=== PATIENT | female | born 2000 | race Caucasian/White ===

== ENCOUNTER 2019-01-03 19:30 | Emergency (ER) | payer OTHER ==
--- NOTE | 2019-01-03 20:09 | ER Document Report ---
ED Medical Screen (RME) - General Chief Complaint: OB Problem (<20wks) Stated Complaint: ISSUES Time Seen by Provider: 01/03/19 19:58 Mode of Arrival: Ambulatory Information source: Patient Notes: Patient presents to the emergency department with reports of positive home test. Last period December 04. History of a miscarriage G1, P0. Reports mild abdominal cramps no vaginal bleed some pain with void. I have greeted and performed a rapid initial assessment of this patient. A comprehensive ED assessment and evaluation of the patient, analysis of test results and completion of the medical decision making process will be conducted by additional ED providers. Dictation of this chart was performed using voice recognition software; therefore, there may be some unintended grammatical errors. TRAVEL OUTSIDE OF THE [place] IN LAST 30 DAYS: No - Related Data Allergies/Adverse Reactions: codeine Allergy (Verified 01/03/19 19:40) Physical Exam - Vital signs Vitals: Temp Pulse Resp BP Pulse Ox 98.7 F 84 18 151/94 H 98 01/03/19 19:45 01/03/19 19:45 01/03/19 19:45 01/03/19 19:45 01/03/19 19:45 Course - Vital Signs Vital signs: Temp Pulse Resp BP Pulse Ox 98.7 F 84 18 151/94 H 98 01/03/19 19:45 01/03/19 19:45 01/03/19 19:45 01/03/19 19:45 01/03/19 19:45
[2019-01-03 20:32] LABS: ABSOLUTE EOSINOPHILS # (AUTO) 0.2 10^3/uL (0.0-0.6); ABSOLUTE LYMPHOCYTES (AUTO) 3.8 10^3/uL (0.5-4.7); ABSOLUTE MONOCYTES (AUTO) 0.8 10^3/uL (0.1-1.4); ABSOLUTE NEUT (AUTO) 9.2 10^3/uL (1.7-8.2); BASOPHILS % (AUTO) 0.3 % (0-2); EOSINOPHILS % (AUTO) 1.2 % (0-6); HEMATOCRIT 39.5 % (36.0-47.0); HEMOGLOBIN 13.2 g/dL (12.0-15.5); MEAN CORPUSCULAR HEMOGLOBIN 28.6 pg (27.0-33.4); MEAN CORPUSCULAR HGB CONC 33.3 g/dL (32.0-36.0); MEAN CORPUSCULAR VOLUME 86 fl (80-97); MONOCYTES % (AUTO) 5.9 % (3-13); PLATELET COUNT 402 10^3/uL (150-450); RED BLOOD COUNT 4.61 10^6/uL (3.72-5.28); RED CELL DISTRIBUTION WIDTH 13.8 % (11.5-14.0); SEGMENTED NEUTROPHILS % (AUTO) 65.6 % (42-78); TOTAL CELLS COUNTED % (AUTO) 100 %
--- NOTE | 2019-01-03 20:35 | ER Document Report ---
ED GI/ - General Chief Complaint: OB Problem (<20wks) Stated Complaint: ISSUES Time Seen by Provider: 01/03/19 19:58 Mode of Arrival: Ambulatory Notes: Patient is a 18-year-old female that comes to the emergency department for chief complaint of cramping in her lower abdomen and back. She states she had a positive home test as well. LMP approximately December 03 of this year. She is sexually active with her . She denies fever/chills, nausea/vomiting, vaginal bleeding or discharge, dysuria. She denies injury. She has had one previous with a spontaneous miscarriage. She denies any surgeries, medications, or diagnosed medical problems. TRAVEL OUTSIDE OF THE [place] IN LAST 30 DAYS: No - Related Data Allergies/Adverse Reactions: codeine Allergy (Verified 01/03/19 19:40) Past Medical History - General Information source: Patient - Social History Smoking Status: Never Smoker Chew tobacco use (# tins/day): No Frequency of alcohol use: None Drug Abuse: None Lives with: Family Family History: Reviewed & Not Pertinent Patient has suicidal ideation: No Patient has homicidal ideation: No Renal/ Medical History: Denies: Hx Peritoneal Dialysis Surgical Hx: Negative - Immunizations Immunizations up to date: Yes Hx Diphtheria, Pertussis, Tetanus Vaccination: Yes Review of Systems - Review of Systems Constitutional: No symptoms reported EENT: No symptoms reported Cardiovascular: No symptoms reported Respiratory: No symptoms reported Gastrointestinal: See HPI Genitourinary: See HPI Female Genitourinary: See HPI Musculoskeletal: No symptoms reported Skin: No symptoms reported Hematologic/Lymphatic: No symptoms reported Neurological/Psychological: No symptoms reported Physical Exam - Vital signs Vitals: Temp Pulse Resp BP Pulse Ox 98.7 F 84 18 151/94 H 98 01/03/19 19:45 01/03/19 19:45 01/03/19 19:45 01/03/19 19:45 01/03/19 19:45 - Notes Notes: GENERAL: Alert, interacts well. No acute distress. HEAD: Normocephalic, atraumatic. EYES: Pupils equal, round, and reactive to light. Extraocular movements intact. ENT: Oral mucosa moist, tongue midline. Oropharynx unremarkable. Airway patent. LUNGS: Clear to auscultation bilaterally, no wheezes, rales, or rhonchi. No respiratory distress. HEART: Regular rate and rhythm. No murmur ABDOMEN: Minimal generalized tenderness of the lower abdomen. Remaining abdomen completely unremarkable. No rigidity or guarding. Non-distended. Bowel sounds present in all 4 quadrants. GENITOURINARY: Deferred EXTREMITIES: Moves all 4 extremities spontaneously. No edema, normal radial and dorsalis pedis pulses bilaterally. No cyanosis. BACK: no cervical, thoracic, lumbar midline tenderness. No saddle anesthesia, normal distal neurovascular exam. NEUROLOGICAL: Alert and oriented x3. Normal speech. Cranial nerves II through XII grossly intact. PSYCH: Normal affect, normal mood. SKIN: Warm, dry, normal turgor. No rashes or lesions noted. Course - Re-evaluation Re-evalutation: Patient reporting generalized lower abdominal pain with radiation to the flank. No overt CVA tenderness. She is smiling, talkative, well-appearing. Abdomen has very minimal generalized tenderness without guarding. Denies vaginal bleeding or discharge. She states she thinks she has a urinary tract infection. I did review work-up from triage. CBC shows mild leukocytosis of 14,000 with elevation of neutrophils but no bandemia. Chemistry nonspecific. hCG is mildly elevated in the 700s. This is consistent with patient's reported menstrual cycle within the past month. Urinalysis shows some squamous epithelials but much more evidence of infection. Urine culture placed, treating with Keflex. Ultrasound shows small corpus luteum cyst but no acute findings. No intrauterine is noted but I do not expect this with hCG in the 700s. Patient does not have abdominal tenderness suggesting acute abdomen either. On reevaluation patient remains very well-appearing. Discussed work-up, treatments, provided with copy of her results, discussed return precautions. Patient states satisfaction and agreement. - Vital Signs Vital signs: Temp Pulse Resp BP Pulse Ox 98.1 F 71 17 132/79 H 98 01/03/19 22:53 01/03/19 22:53 01/03/19 22:53 01/03/19 22:53 01/03/19 22:53 - Laboratory Result Diagrams: 01/03/19 20:15 01/03/19 20:15 Laboratory results interpreted by me: 01/03/19 01/03/19 01/03/19 20:15 20:15 20:15 WBC 14.0 H Absolute Neutrophils 9.2 H Beta HCG, Quant 758.11 H Urine Protein >=500 H Urine Blood LARGE H Ur Leukocyte Esterase TRACE H Discharge - Discharge Clinical Impression: Abdominal cramping affecting , Flank pain Condition: Stable Disposition: HOME, SELF-CARE Additional Instructions: Your work-up indicates a urinary tract infection. This is most likely the cause of your symptoms. Take Keflex as prescribed, drink plenty fluids, and rest. Your hormone is indicating early , no is visualized in the uterus but this is expected based on your hormone level. No concerning abnormality's were seen. Follow-up with primary care for additional evaluation and management. Return if you worsen including vomiting, developing or worsening pain, fever/chills, or any other concerning or worsening symptoms. Prescriptions: Cephalexin Monohydrate [Keflex 500 mg Capsule] 500 mg PO BID 7 Days #14 capsule
[2019-01-03 20:39] LABS: APPEARANCE,URINE SLIGHTLY-CLOUDY; COLOR,URINE AMBER
[2019-01-03 20:40] LABS: BILIRUBIN,URINE NEGATIVE (NEGATIVE); GLUCOSE, URINE NEGATIVE (NEGATIVE); KETONES,URINE NEGATIVE (NEGATIVE); LEUKOCYTE ESTERASE,URINE TRACE (NEGATIVE); NITRITE,URINE NEGATIVE (NEGATIVE); PROTEIN,URINE >=500 mg/dL (NEGATIVE); UROBILINOGEN,URINE NEGATIVE mg/dL (<2.0)
[2019-01-03 20:50] LABS: ALANINE AMINOTRANSFERASE 24 U/L (9-52); ALBUMIN 3.6 g/dL (3.5-5.0); ALKALINE PHOSPHATASE 53 U/L (38-126); ANION GAP 8 (5-19); ASPARTATE AMINO TRANSFERASE 22 U/L (14-36); BILIRUBIN,DIRECT 0.2 mg/dL (0.0-0.4); BILIRUBIN,TOTAL 0.3 mg/dL (0.2-1.3); BLOOD UREA NITROGEN 13 mg/dL (7-20); CALCIUM 8.9 mg/dL (8.4-10.2); CARBON DIOXIDE 25 mmol/L (22-30); CHLORIDE 104 mmol/L (98-107); GLUCOSE 88 mg/dL (75-110); POTASSIUM 4.5 mmol/L (3.6-5.0); SODIUM 137.3 mmol/L (137-145); TOTAL PROTEIN 6.7 g/dL (6.3-8.2)
--- NOTE | 2019-01-03 22:33 | RADIOLOGY REPORT (SQ) ---
EXAM DESCRIPTION: [facility]: US TRANSVAGINAL CLINICAL HISTORY: 18 years Female; preg abdominal pain Beta-hCG 758 on 01/03/2019 TECHNIQUE: Endovaginal pelvic ultrasound was performed. COMPARISON: None. FINDINGS: Uterus: 7.7 x 4.5 x 5.6 cm. Endometrial canal is less than 3 mm diameter. No intrauterine gestational sac is identified. There is a trace amount of fluid in the endometrial canal. Right ovary: 3.6 x 2.8 x 2.5 cm. There is a 2.2 x 2 x 2.1 cm cyst with some internal echoes but no septations or nodularity. No significant peripheral hyperemia. Normal ovarian vascular flow on Doppler. Left ovary: 2.9 x 2.2 x 2.8 cm. Normal vascular flow on Doppler. No free fluid. No adnexal masses. Cervix 3 cm long IMPRESSION: 1. No intrauterine gestational sac is identified, likely to early. 2. Cystic structure in the right ovary with some internal echoes may represent the corpus luteum cyst 3. No ovarian torsion or suspicious adnexal masses.
[2019-01-03] MEDS ORDERED: CEPHALEXIN 500 MG CAPSULE PO ONE (22:43)
[2019-01-03 22:55] VITALS: BP 132/79
== END 2019-01-03 22:55 | disposition home or self-care (01) ==
LOC: ER 19:30
DX: O26.91 Pregnancy related conditions, unspecified, first trimester (principal); R10.30 Lower abdominal pain, unspecified; M54.9 Dorsalgia, unspecified; Z3A.01 Less than 8 weeks gestation of pregnancy; Z88.6 Allergy status to analgesic agent
CPT/HCPCS: 36415; 76817; 80053; 81001; 84702; 85025; 87086; 99284

== ENCOUNTER 2019-02-12 16:39 | Emergency (ER) | payer OTHER ==
--- NOTE | 2019-02-12 18:31 | ER Document Report ---
ED Medical Screen (RME) - General Chief Complaint: Vaginal Bleeding Stated Complaint: VAGINAL BLEEDING Time Seen by Provider: 02/12/19 18:23 Primary Care Provider: NICK RICHARDSON [Primary Care Provider] - Follow up as needed Mode of Arrival: Ambulatory Information source: Patient Notes: Patient is an otherwise healthy 18-year-old female presenting with chief complaint of vaginal bleeding in the presence of . Patient reports she is approximately 10 weeks . She is a G2, P0. She reports history of PCOS. She states the bleeding started just prior to arrival. Reports associated low abdominal cramping. Exam: Abdomen soft, nontender with no guarding no rebound. Patient tearful. I have greeted and performed a rapid initial assessment of this patient. A comprehensive ED assessment and evaluation of the patient, analysis of test results and completion of the medical decision making process will be conducted by additional ED providers. I have specifically instructed the patient or family members with the patient to immediately return to any nursing staff should anything change in the patient's condition or with their chief complaint. This medical record was dictated with voice recognizing software. There may be grammatical, syntax errors that are unintended. TRAVEL OUTSIDE OF THE [place] IN LAST 30 DAYS: No - Related Data Allergies/Adverse Reactions: codeine Allergy (Verified 02/12/19 16:45) Past Medical History - Social History Chew tobacco use (# tins/day): No Frequency of alcohol use: None Drug Abuse: None Renal/ Medical History: Reports: Hx Kidney Stones. Denies: Hx Peritoneal Dialysis - Immunizations Immunizations up to date: Yes Hx Diphtheria, Pertussis, Tetanus Vaccination: Yes Physical Exam - Vital signs Vitals: Temp Pulse Resp BP Pulse Ox 98.3 F 95 18 129/85 H 98 02/12/19 17:00 02/12/19 17:00 02/12/19 17:00 02/12/19 17:00 02/12/19 17:00 Course - Vital Signs Vital signs: Temp Pulse Resp BP Pulse Ox 98.3 F 95 18 129/85 H 98 02/12/19 17:00 02/12/19 17:00 02/12/19 17:00 02/12/19 17:00 02/12/19 17:00 Doctor's Discharge - Discharge Referrals: DEBRA,NICK [Primary Care Provider] - Follow up as needed
[2019-02-12 18:39] LABS: ABSOLUTE EOSINOPHILS # (AUTO) 0.3 10^3/uL (0.0-0.6); ABSOLUTE LYMPHOCYTES (AUTO) 4.1 10^3/uL (0.5-4.7); ABSOLUTE MONOCYTES (AUTO) 0.9 10^3/uL (0.1-1.4); ABSOLUTE NEUT (AUTO) 8.3 10^3/uL (1.7-8.2); BASOPHILS % (AUTO) 0.2 % (0-2); EOSINOPHILS % (AUTO) 2.1 % (0-6); HEMATOCRIT 38.2 % (36.0-47.0); HEMOGLOBIN 12.7 g/dL (12.0-15.5); LYMPHOCYTES % (AUTO) 29.8 % (13-45); MEAN CORPUSCULAR HEMOGLOBIN 28.8 pg (27.0-33.4); MEAN CORPUSCULAR HGB CONC 33.3 g/dL (32.0-36.0); MEAN CORPUSCULAR VOLUME 86 fl (80-97); MONOCYTES % (AUTO) 6.6 % (3-13); PLATELET COUNT 449 10^3/uL (150-450); RED BLOOD COUNT 4.41 10^6/uL (3.72-5.28); SEGMENTED NEUTROPHILS % (AUTO) 61.3 % (42-78); TOTAL CELLS COUNTED % (AUTO) 100 %; WHITE BLOOD COUNT 13.6 10^3/uL (4.0-10.5)
[2019-02-12 18:58] LABS: AMORPHOUS SEDIMENT,URINE TRACE /HPF; APPEARANCE,URINE SLIGHTLY-CLOUDY; BILIRUBIN,URINE NEGATIVE (NEGATIVE); COLOR,URINE YELLOW; GLUCOSE, URINE NEGATIVE (NEGATIVE); KETONES,URINE NEGATIVE (NEGATIVE); LEUKOCYTE ESTERASE,URINE MODERATE (NEGATIVE); NITRITE,URINE NEGATIVE (NEGATIVE); PROTEIN,URINE >=500 mg/dL (NEGATIVE); URINE SPECIFIC GRAVITY 1.014; UROBILINOGEN,URINE NEGATIVE mg/dL (<2.0)
--- NOTE | 2019-02-12 19:46 | RADIOLOGY REPORT (SQ) ---
EXAM DESCRIPTION: U/S OB TRANSVAGINAL W/O DOP COMPLETED DATE/TIME: 02/12/2019 7:26 pm REASON FOR STUDY: 10 wks preg, vag bleed COMPARISON: None. TECHNIQUE: Transvaginal Static and realtime grayscale images acquired of the pelvis. Additional court cted spectral and color Doppler images recorded. All images stored on PACs. [id number],441 CLINICAL DATES: LMP 12/03/2018. 10 weeks 1 day. LIMITATIONS: None. FINDINGS: FETUS: Single Living intrauterine . ULTRASOUND EGA: 6 weeks 0 days ULTRASOUND ZINA: 10/08/2019 EFW: Not applicable less than 20 weeks. CRL: 0.33 cm FHR: Cardiac motion is not seen. Beats per minute. SURVEY: Too early to assess. AMNIOTIC FLUID: Adequate amount. PLACENTA: Not yet developed due to early gestation. SUBCHORIONIC BLEED: No SIZE OF BLEED: Not applicable. UTERUS: No masses. No anomalies. CERVICAL LENGTH: 1.9 cm. Closed. RIGHT ADNEXA: Normal ovary with normal vascular flow. 2.8 x 1.5 x 2.1 cm. There is a 13 mm complex area that may represent a corpus luteum. No adnexal free fluid. No adnexal masses. LEFT ADNEXA: Normal ovary with normal vascular flow. No adnexal free fluid. No adnexal masses. FREE FLUID: None. OTHER: No other significant finding. IMPRESSION: There is a gestational sac and pole consistent with a gestation 6 weeks 0 days. N o heart motion is seen, concerning for miscarriage. Follow-up as clinically indicated. TECHNICAL DOCUMENTATION: JOB ID: [id number] [email or web address]- All Rights Reserved rev-11/15 Reading location - IP/workstation name: [email or web address]
--- NOTE | 2019-02-12 21:48 | ER Document Report ---
ED GI/ - General Chief Complaint: Vaginal Bleeding Stated Complaint: VAGINAL BLEEDING Time Seen by Provider: 02/12/19 18:23 [facility] Care Provider: [facility] [[facility]] - Follow up as needed Mode of Arrival: Ambulatory Information source: Patient Notes: 18-year-old female presents the ED for complaint of vaginal bleeding in the presence of . She states she is supposed to be about 10 weeks as this is 2 para 0. She has a history of PCOS. She states that the bleeding just started this evening. She states she has been having some pelvic cramping as well. She states she was seen here previously and told she was and then she followed up at but they would not do an ultrasound until she is 11 weeks. Patient is alert oriented respirations regular and unlabored speaking in full sentences walks with an even steady gait. TRAVEL OUTSIDE OF THE [place] IN LAST 30 DAYS: No - HPI Patient complains to provider of: Pelvic pain, , Vaginal bleeding Onset: Just prior to arrival Timing/Duration: Gradual Quality of pain: Cramping Severity at maximum: Mild Severity in ED: Mild Pain Level: 2 Location: Pelvis Vaginal bleeding (Compared to normal period): Geomagnetist Menstrual period history: : 2 Para: 0 heart tones (bpm): 0 ABO type: a Rh factor: + OB ultrasound done: Yes Associated symptoms: Other - pelvic pain vaginal bleeding Exacerbated by: Movement Relieved by: Denies Similar symptoms previously: Yes Recently seen / treated by doctor: No - Related Data Allergies/Adverse Reactions: codeine Allergy (Verified 02/12/19 16:45) Past Medical History - General Information source: Patient - Social History Smoking Status: Never Smoker Chew tobacco use (# tins/day): No Frequency of alcohol use: None Drug Abuse: None Lives with: Family Family History: Reviewed & Not Pertinent Patient has suicidal ideation: No Patient has homicidal ideation: No - Past Medical History Cardiac Medical History: Reports: None Pulmonary Medical History: Reports: None EENT Medical History: Reports: None Neurological Medical History: Reports: None Endocrine Medical History: Reports: None Renal/ Medical History: Reports: Hx Kidney Stones, Hx Ovarian Cysts Malignancy Medical History: Reports: None GI Medical History: Reports: None Musculoskeletal Medical History: Reports None Skin Medical History: Reports None Psychiatric Medical History: Reports: None Traumatic Medical History: Reports: None Infectious Medical History: Reports: None Surgical Hx: Negative Past Surgical History: Reports: None - Immunizations Immunizations up to date: Yes Hx Diphtheria, Pertussis, Tetanus Vaccination: Yes - 2017 Review of Systems - Review of Systems Constitutional: No symptoms reported EENT: No symptoms reported Cardiovascular: No symptoms reported Respiratory: No symptoms reported Gastrointestinal: No symptoms reported Genitourinary: No symptoms reported Female Genitourinary: , Vaginal bleeding Musculoskeletal: No symptoms reported Skin: No symptoms reported Hematologic/Lymphatic: No symptoms reported Neurological/Psychological: No symptoms reported -: Yes All other systems reviewed and negative Physical Exam - Vital signs Vitals: Temp Pulse Resp BP Pulse Ox 98.3 F 95 18 129/85 H 98 02/12/19 17:00 02/12/19 17:00 02/12/19 17:00 02/12/19 17:00 02/12/19 17:00 Interpretation: Normal - General General appearance: Appears well, Alert - HEENT Head: Normocephalic, Atraumatic Eyes: Normal Pupils: PERRL - Respiratory Respiratory status: No respiratory distress Chest status: Nontender Breath sounds: Normal Chest palpation: Normal - Cardiovascular Rhythm: Regular Heart sounds: Normal auscultation Murmur: No - Abdominal Inspection: Normal Distension: No distension Bowel sounds: Normal Tenderness: Nontender Organomegaly: No organomegaly - Genitourinary External exam: Normal Speculum exam: Cervix closed Vaginal bleeding: Moderate Bimanuel exam: Normal - Back Back: Normal, Nontender - Extremities General upper extremity: Normal inspection, Nontender, Normal color, Normal ROM, Normal temperature General lower extremity: Normal inspection, Nontender, Normal color, Normal ROM, Normal temperature, Normal weight bearing. No: Hattie's sign - Neurological Neuro grossly intact: Yes Cognition: Normal Orientation: AAOx4 Walter Coma Scale Eye Opening: Spontaneous Walter Coma Scale Verbal: Oriented Walter Coma Scale Motor: Obeys Commands [place] Coma Scale Total: 15 Speech: Normal Motor strength normal: LUE, RUE, LLE, RLE Sensory: Normal - Psychological Associated symptoms: Normal affect, Normal mood - Skin Skin Temperature: Warm Skin Moisture: Dry Skin Color: Normal Course - Re-evaluation Re-evalutation: 02/13/19 02:31 Labs and ultrasound were discussed with patient and written report of labs and ultrasound were given to patient. Patient was also given a CD of the ultrasound. Patient was instructed to follow-up with the [facility] as this is her primary [facility] [employer] [facility]. She was informed that this was an incomplete miscarriage as the gestational sac and pole are still present but she has no heartbeat and the baby is a size of a 6-week baby and she she should be 10 weeks . - Vital Signs Vital signs: Temp Pulse Resp BP Pulse Ox 98.5 F 97 18 137/94 H 98 02/12/19 21:49 02/12/19 21:49 02/12/19 21:49 02/12/19 21:49 02/12/19 17:00 - Laboratory Result Diagrams: 02/12/19 16:12 Laboratory results interpreted by me: 02/12/19 02/12/19 02/12/19 16:12 16:12 18:42 WBC 13.6 H Absolute Neutrophils 8.3 H Beta HCG, Quant 36398.00 H Urine Protein >=500 H Urine Blood LARGE H Ur Leukocyte Esterase MODERATE H - Diagnostic Test Radiology reviewed: Image reviewed, Reports reviewed Discharge - Discharge Clinical Impression: Incomplete miscarriage Condition: Stable Disposition: HOME, SELF-CARE Additional Instructions: You were seen today for vaginal bleeding during . You stated you were 10 weeks due to the last hCG you had completed. The ultrasound is not showing a heart tone and a gestational sac with a pole the size of the 6 weeks gestation. This is worrisome for a incomplete miscarriage as there is no heartbeat at this time. You need to follow-up with [facility] tomorrow to schedule follow-up for an incomplete miscarriage. Acetaminophen Acetaminophen may be taken for pain relief or fever control. It's much safer than aspirin, offering a wider range of "safe" dosages. It is safe during . Some brand names are Tylenol, Panadol, Datril, Anacin 3, Tempra, and Liquiprin. Acetaminophen can be repeated every four hours. The following are maximum recommended dosages: WEIGHT Dose Drops Elixir Chewable(80mg) (LBS.) drprs=droppers tsp=teaspoon 6 40 mg .4 ml (1/2) 6-11 80 mg .8 ml (full) 1/2 tsp 1 tab 12-16 120 mg 1 1/2 drprs 3/4 tsp 1 1/2 tabs 17-23 160 mg 2 drprs 1 tsp 2 tabs 24-30 240 mg 3 drprs 1 1/2 tsp 3 tabs 30-35 320 mg 2 tsp 4 tabs 36-41 360 mg 2 1/4 tsp 4 1/2 tabs 42-47 400 mg 2 1/2 tsp 5 tabs 48-53 480 mg 3 tsp 6 tabs 54-59 520 mg 3 1/4 tsp 6 1/2 tabs 60-64 560 mg 3 1/2 tsp 7 tabs 65-70 600 mg 3 3/4 tsp 7 1/2 tabs 71-76 640 mg 4 tsp 8 tabs 77-82 720 mg 4 1/2 tsp 9 tabs 83-88 800 mg 5 tsp 10 tabs >89 pounds or adults 650 mg to 900 mg Acetaminophen can be repeated every four hours. Maximum daily dose not to exceed 4000 mg. These maximum recommended dosages are slightly higher than the dosages written on the product container, but these dosages are very safe and well below the toxic dosage for acetaminophen. FOLLOW-UP CARE: If you have been referred to a physician for follow-up care, call the physicians office for an appointment as you were instructed or within the next two days. If you experience worsening or a significant change in your symptoms (very heavy bleeding with large clots of blood, passage of tissue, more severe abdominal / pelvic pain or cramping, feeling faint or severe weakness, fever, etc.), notify the physician immediately or return to the Emergency Department at any time for re-evaluation. For active duty and dependents diagnosed with a threatened or miscarriage, you should follow up in the following manner: Standard patients who have a local civilian provider should follow up with that provider. Patients of the Family Practice Clinic should call your Team Nurse at 8:00 am the following morning for further instructions. If you are neither a Standard patient nor a patient of the Family Practice Clinic, you should follow up at the [facility] ([facility]). Patients already enrolled in the [facility], Prime patients not assigned to the Family Practice Clinic, and Active Duty patients not assigned to Family Practice Clinic should report to the [facility] Lab at 8:00 am the next morning that the [facility] is open and then you will be seen in the OB Clinic at 11:00 am. Forms: Elevated Blood Pressure Referrals: [facility] [Primary Care Provider] - Follow up as needed
[2019-02-12 21:52] VITALS: BP 137/94
== END 2019-02-12 21:59 | disposition home or self-care (01) ==
LOC: ER 16:39
DX: O03.4 Incomplete spontaneous abortion without complication (principal); R10.2 Pelvic and perineal pain; Z88.5 Allergy status to narcotic agent
CPT/HCPCS: 36415; 76817; 81001; 84702; 85025; 86900; 86901; 99284

== ENCOUNTER 2020-05-05 12:28 | Emergency (ER) | payer OTHER ==
--- NOTE | 2020-05-05 13:01 | ER Document Report ---
ED GI/ - General Chief Complaint: Flank Pain Stated Complaint: FLANK PAIN Time Seen by Provider: 05/05/20 12:57 Primary Care Provider: DEBRA,NICK [Primary Care Provider] - Follow up as needed Mode of Arrival: Ambulatory Information source: Patient Notes: 19-year-old female presents to ED for complaint of bilateral flank pain for 3 days. She states she went to the primary care and they told her she had blood and white cells in her urine but she did not have a UTI. She is 5 weeks 4 days . She is 3 para 0. She denies any vaginal bleeding. She does have a history of high blood pressure and a D&C for one of the miscarriages. She states she does not smoke drink or use any illicit drugs. I have greeted and performed a rapid initial assessment of this patient. A comprehensive ED assessment and evaluation of the patient, analysis of test results and completion of medical decision making process will be conducted by an additional ED providers. TRAVEL OUTSIDE OF THE [place] IN LAST 30 DAYS: No - Related Data Allergies/Adverse Reactions: codeine Allergy (Verified 05/05/20 12:56) Past Medical History - Social History Family History: Reviewed & Not Pertinent Renal/ Medical History: Reports: Hx Kidney Stones, Hx Ovarian Cysts. Denies: Hx Peritoneal Dialysis - Immunizations Immunizations up to date: Yes Hx Diphtheria, Pertussis, Tetanus Vaccination: Yes - 2016 Physical Exam - Vital signs Vitals: Temp Pulse Resp BP Pulse Ox 97.9 F 100 16 140/91 H 98 05/05/20 12:42 05/05/20 12:42 05/05/20 12:42 05/05/20 12:42 05/05/20 12:42 Course - Vital Signs Vital signs: Temp Pulse Resp BP Pulse Ox 97.9 F 100 16 140/91 H 98 05/05/20 12:42 05/05/20 12:42 05/05/20 12:42 05/05/20 12:42 05/05/20 12:42 Discharge - Discharge Referrals: [facility] [Primary Care Provider] - Follow up as needed
--- NOTE | 2020-05-05 13:01 | ER Document Report ---
ED Medical Screen (RME) - General Chief Complaint: Flank Pain Stated Complaint: FLANK PAIN Time Seen by Provider: 05/05/20 12:57 Primary Care Provider: NICK RICHARDSON [Primary Care Provider] - Follow up as needed Mode of Arrival: Ambulatory Notes: 19-year-old female presents to ED for complaint of bilateral flank pain for 3 days. She states she went to the primary care and they told her she had blood and white cells in her urine but she did not have a UTI. She is 5 weeks 4 days . She is 3 para 0. She denies any vaginal bleeding. She does have a history of high blood pressure and a D&C for one of the miscarriages. She states she does not smoke drink or use any illicit drugs. I have greeted and performed a rapid initial assessment of this patient. A comprehensive ED assessment and evaluation of the patient, analysis of test results and completion of medical decision making process will be conducted by an additional ED providers. TRAVEL OUTSIDE OF THE [place] IN LAST 30 DAYS: No - Related Data Allergies/Adverse Reactions: codeine Allergy (Verified 05/05/20 12:56) Past Medical History - Social History Chew tobacco use (# tins/day): No Frequency of alcohol use: None Drug Abuse: None Renal/ Medical History: Reports: Hx Kidney Stones, Hx Ovarian Cysts. Denies: Hx Peritoneal Dialysis - Immunizations Immunizations up to date: Yes Hx Diphtheria, Pertussis, Tetanus Vaccination: Yes - 2016 Physical Exam - Vital signs Vitals: Temp Pulse Resp BP Pulse Ox 97.9 F 100 16 140/91 H 98 05/05/20 12:42 05/05/20 12:42 05/05/20 12:42 05/05/20 12:42 05/05/20 12:42 Course - Vital Signs Vital signs: Temp Pulse Resp BP Pulse Ox 97.9 F 100 16 140/91 H 98 05/05/20 12:42 05/05/20 12:42 05/05/20 12:42 05/05/20 12:42 05/05/20 12:42 Doctor's Discharge - Discharge Referrals: DEBRA,NICK [Primary Care Provider] - Follow up as needed
[2020-05-05 13:37] LABS: ABSOLUTE EOSINOPHILS # (AUTO) 0.3 10^3/uL (0.0-0.6); ABSOLUTE LYMPHOCYTES (AUTO) 3.5 10^3/uL (0.5-4.7); ABSOLUTE MONOCYTES (AUTO) 0.8 10^3/uL (0.1-1.4); ABSOLUTE NEUT (AUTO) 9.6 10^3/uL (1.7-8.2); BASOPHILS % (AUTO) 0.2 % (0-2); EOSINOPHILS % (AUTO) 2.2 % (0-6); HEMATOCRIT 38.9 % (36.0-47.0); HEMOGLOBIN 13.2 g/dL (12.0-15.5); LYMPHOCYTES % (AUTO) 24.4 % (13-45); MEAN CORPUSCULAR HEMOGLOBIN 29.2 pg (27.0-33.4); MEAN CORPUSCULAR HGB CONC 33.9 g/dL (32.0-36.0); MEAN CORPUSCULAR VOLUME 86 fl (80-97); MONOCYTES % (AUTO) 5.4 % (3-13); PLATELET COUNT 404 10^3/uL (150-450); RED BLOOD COUNT 4.52 10^6/uL (3.72-5.28); SEGMENTED NEUTROPHILS % (AUTO) 67.8 % (42-78); TOTAL CELLS COUNTED % (AUTO) 100 %; WHITE BLOOD COUNT 14.1 10^3/uL (4.0-10.5)
[2020-05-05 13:54] LABS: APPEARANCE,URINE CLOUDY; BILIRUBIN,URINE NEGATIVE (NEGATIVE); COLOR,URINE YELLOW; GLUCOSE, URINE NEGATIVE (NEGATIVE); KETONES,URINE NEGATIVE (NEGATIVE); LEUKOCYTE ESTERASE,URINE TRACE (NEGATIVE); NITRITE,URINE NEGATIVE (NEGATIVE); PROTEIN,URINE 100 mg/dL (NEGATIVE); URINE SPECIFIC GRAVITY 1.018; UROBILINOGEN,URINE NEGATIVE mg/dL (<2.0)
[2020-05-05 13:56] LABS: ALBUMIN 3.6 g/dL (3.5-5.0); ALKALINE PHOSPHATASE 60 U/L (38-126); ANION GAP 9 (5-19); ASPARTATE AMINO TRANSFERASE 21 U/L (14-36); BILIRUBIN,TOTAL 0.4 mg/dL (0.2-1.3); BLOOD UREA NITROGEN 13 mg/dL (7-20); CALCIUM 9.7 mg/dL (8.4-10.2); CARBON DIOXIDE 22 mmol/L (22-30); CHLORIDE 105 mmol/L (98-107); GLUCOSE 94 mg/dL (75-110); POTASSIUM 4.6 mmol/L (3.6-5.0)
--- NOTE | 2020-05-05 14:59 | RADIOLOGY REPORT (SQ) ---
EXAM DESCRIPTION: U/S RETROPERITON (RENAL/AORTA) IMAGES COMPLETED DATE/TIME: 05/05/2020 2:38 pm REASON FOR STUDY: Bilateral flank pain 5 weeks 4 days COMPARISON: None. TECHNIQUE: Dynamic and static grayscale images acquired of the kidneys and bladder and recorded on P ACS. Additional selected color Doppler and spectral images recorded. LIMITATIONS: None. FINDINGS: RIGHT KIDNEY: Normal size, 11 cm. Normal echogenicity. No solid or suspicious masses. No h ydronephrosis. No calcifications. LEFT KIDNEY: Normal size, 11 cm. Normal echogenicity. No solid or suspicious masses. No hydronephros is. No calcifications. 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 BLADDER: Filled masses. Bilateral ureteral jets are seen. OTHER FINDINGS: No other significant finding. IMPRESSION: NORMAL RENAL AND BLADDER ULTRASOUND. TECHNICAL DOCUMENTATION: JOB ID: [id number] 2010 [employer]- All Rights Reserved Reading location - IP/workstation name: [email or web address]
[2020-05-05] MEDS ORDERED: CEPHALEXIN 500 MG CAPSULE PO ONE (17:05)
--- NOTE | 2020-05-05 17:09 | ER Document Report ---
ED General - General Chief Complaint: Flank Pain Stated Complaint: FLANK PAIN Time Seen by Provider: 05/05/20 12:57 Primary Care Provider: NICK RICHARDSON [NO LOCAL MD] - Follow up as needed Mode of Arrival: Ambulatory TRAVEL OUTSIDE OF THE [place] IN LAST 30 DAYS: No - HPI Notes: Patient is a 19-year-old female, at approximately 5 and half weeks gestation, who presents to the emergency department for evaluation of dysuria and lower back pain. She states is been going on for several days. She saw her primary care provider who told her that she did not have signs of UTI, and she presents here to the emergency department for evaluation. Her pain is in her lower back, it is an aching cramping pain. She rates it a 3 out of 5. She has had 2 episodes of nonbloody, nonbilious emesis. She denies any vaginal bleeding. She has a history of kidney stones, states this feels nothing like her kidney stones in the past. No fevers. - Related Data Allergies/Adverse Reactions: codeine Allergy (Verified 05/05/20 12:56) Home Medications: vitamin Past Medical History - General Information source: Patient - Social History Smoking Status: Never Smoker Chew tobacco use (# tins/day): No Frequency of alcohol use: None Drug Abuse: None Family History: Reviewed & Not Pertinent Patient has homicidal ideation: No Renal/ Medical History: Reports: Hx Kidney Stones, Hx Ovarian Cysts. Denies: Hx Peritoneal Dialysis - Immunizations Immunizations up to date: Yes Hx Diphtheria, Pertussis, Tetanus Vaccination: Yes - 2017 Review of Systems - Review of Systems Constitutional: No symptoms reported EENT: No symptoms reported Cardiovascular: No symptoms reported Respiratory: No symptoms reported Gastrointestinal: See HPI Genitourinary: See HPI Female Genitourinary: See HPI Musculoskeletal: See HPI Skin: No symptoms reported Neurological/Psychological: No symptoms reported -: Yes All other systems reviewed and negative Physical Exam - Vital signs Vitals: Temp Pulse Resp BP Pulse Ox 97.9 F 100 16 140/91 H 98 05/05/20 12:42 05/05/20 12:42 05/05/20 12:42 05/05/20 12:42 05/05/20 12:42 - Notes Notes: Vital signs reviewed, please refer to chart. Head is normocephalic, atraumatic. Pupils equal round, reactive to light. Neck is supple without meningismus. Heart is regular rate and rhythm. Lungs are clear to auscultation bilaterally. Abdomen is soft, nontender, normoactive bowel sounds throughout. No CVA tenderness noted. Extremities without cyanosis, clubbing. Posterior calves are nontender. Peripheral pulses are equal. Skin is warm and dry. Patient is awake, alert, neurological exam is nonfocal. Course - Re-evaluation Re-evalutation: 05/05/20 17:11 Patient presents the emergency department for evaluation. Laboratory in vestigations are ordered. She does have a mild leukocytosis. Urine shows blood and white blood cells in the urine. Given her symptoms, as well as the presence of bacteria, the certainly seems like urinary tract infection. Ultrasound failed to show any signs of hydronephrosis. She does not have any CVA tenderness. I do not have a high suspicion for pyelonephritis in this young lady. I did get an order Keflex, she was given her first dose here. She is told to follow-up closely with her primary care provider as well as [facility]. She is to return to the ED with her second extending symptoms of any sort. - Vital Signs Vital signs: Temp Pulse Resp BP Pulse Ox 97.9 F 100 16 140/91 H 98 05/05/20 12:42 05/05/20 12:42 05/05/20 12:42 05/05/20 12:42 05/05/20 12:42 - Laboratory Result Diagrams: 05/05/20 13:06 05/05/20 13:06 Laboratory results interpreted by me: 05/05/20 05/05/20 05/05/20 13:06 13:06 13:06 WBC 14.1 H Absolute Neuts (auto) 9.6 H Sodium 136.0 L Beta HCG, Quant 5429.70 H Urine Protein 100 H Urine Blood LARGE H Ur Leukocyte Esterase TRACE H - Diagnostic Test Radiology reviewed: Reports reviewed Radiology results interpreted by me: 05/05/20 17:12 Renal Ultrasound 05/05/20 13:02 IMPRESSION: NORMAL RENAL AND BLADDER ULTRASOUND. Discharge - Discharge Clinical Impression: Urinary tract infection Qualifiers: Urinary tract infection type: acute cystitis Hematuria presence: with hematuria Qualified Code(s): N30.01 - Acute cystitis with hematuria Qualifiers: Weeks of gestation: less than 8 weeks Qualified Code(s): Z3A.01 - Less than 8 weeks gestation of Condition: Stable Disposition: HOME, SELF-CARE Instructions: Cephalexin ([facility]), Urinary Tract Infection ([facility]) Additional Instructions: Rest, stay well-hydrated. Take antibiotic as prescribed until gone. You will be contacted if your urine culture shows bacteria that are not susceptible to the Keflex. Stay hydrated with small, frequent sips of fluids. Follow-up with OB next week. If you develop worsening or new concerning symptoms of any sort, please return immediately to the emergency department for evaluation. Prescriptions: Cephalexin Monohydrate [Keflex 500 mg Capsule] 500 mg PO QID #20 capsule [facility]errals: [facility] [NO LOCAL MD] - Follow up as needed
[2020-05-05 18:46] VITALS: BP 130/93
== END 2020-05-05 18:48 | disposition home or self-care (01) ==
LOC: ER 12:28
DX: O23.11 Infections of bladder in pregnancy, first trimester (principal); O26.891 Other specified pregnancy related conditions, first trimester; R10.9 Unspecified abdominal pain; R30.0 Dysuria; M54.5 Low back pain; Z3A.01 Less than 8 weeks gestation of pregnancy; Z88.8 Allergy status to other drugs, medicaments and biological substances
CPT/HCPCS: 36415; 76770; 80053; 81001; 84702; 85025; 87086; 99285

== ENCOUNTER 2020-05-30 14:28 | Emergency (ER) | payer OTHER ==
--- NOTE | 2020-05-30 14:40 | ER Document Report ---
ED Medical Screen (RME) - General Chief Complaint: Abdominal Pain Stated Complaint: ABDOMINAL PAIN Time Seen by Provider: 05/30/20 14:32 Mode of Arrival: Ambulatory Information source: Patient Notes: Presents stating that she is about 8 weeks G3, P0. Patient states that she is needing urgent follow-up with an SCADA ENGINEER as she had an outpatient ultrasound that did not detect any heart rate. Patient states she is not been able to get an appointment with an SCADA ENGINEER so far. Patient states that she has had lateral side pain and was told that she may have had a kidney stone or UTI but that her urine culture was fine. I have greeted and performed a rapid initial assessment of this patient. A comprehensive ED assessment and evaluation of the patient, analysis of test results and completion of the medical decision making process will be conducted by additional ED providers. TRAVEL OUTSIDE OF THE [place] IN LAST 30 DAYS: No - Related Data Allergies/Adverse Reactions: codeine Allergy (Verified 05/05/20 12:56) Past Medical History Renal/ Medical History: Reports: Hx Kidney Stones, Hx Ovarian Cysts. Denies: Hx Peritoneal Dialysis - Immunizations Immunizations up to date: Yes Hx Diphtheria, Pertussis, Tetanus Vaccination: Yes - 2016 Physical Exam - Vital signs Vitals: Temp Pulse Resp BP Pulse Ox 98.1 F 84 16 142/102 H 100 05/30/20 14:32 05/30/20 14:32 05/30/20 14:32 05/30/20 14:32 05/30/20 14:32 - Abdominal Tenderness: Tender - Right lateral side tenderness Course - Vital Signs Vital signs: Temp Pulse Resp BP Pulse Ox 98.1 F 84 16 142/102 H 100 05/30/20 14:32 05/30/20 14:32 05/30/20 14:32 05/30/20 14:32 05/30/20 14:32
[2020-05-30 15:19] LABS: APPEARANCE,URINE SLIGHTLY-CLOUDY; BILIRUBIN,URINE NEGATIVE (NEGATIVE); COLOR,URINE YELLOW; GLUCOSE, URINE NEGATIVE (NEGATIVE); KETONES,URINE NEGATIVE (NEGATIVE); LEUKOCYTE ESTERASE,URINE NEGATIVE (NEGATIVE); NITRITE,URINE NEGATIVE (NEGATIVE); PROTEIN,URINE >=500 mg/dL (NEGATIVE); URINE SPECIFIC GRAVITY 1.016; UROBILINOGEN,URINE NEGATIVE mg/dL (<2.0)
[2020-05-30 15:28] LABS: ABSOLUTE EOSINOPHILS # (AUTO) 0.2 10^3/uL (0.0-0.6); ABSOLUTE LYMPHOCYTES (AUTO) 3.3 10^3/uL (0.5-4.7); ABSOLUTE MONOCYTES (AUTO) 0.6 10^3/uL (0.1-1.4); ABSOLUTE NEUT (AUTO) 7.9 10^3/uL (1.7-8.2); BASOPHILS % (AUTO) 0.2 % (0-2); EOSINOPHILS % (AUTO) 1.9 % (0-6); HEMATOCRIT 35.8 % (36.0-47.0); HEMOGLOBIN 12.5 g/dL (12.0-15.5); MEAN CORPUSCULAR HEMOGLOBIN 29.6 pg (27.0-33.4); MEAN CORPUSCULAR HGB CONC 34.9 g/dL (32.0-36.0); MEAN CORPUSCULAR VOLUME 85 fl (80-97); MONOCYTES % (AUTO) 5.3 % (3-13); PLATELET COUNT 368 10^3/uL (150-450); RED BLOOD COUNT 4.22 10^6/uL (3.72-5.28); RED CELL DISTRIBUTION WIDTH 13.8 % (11.5-14.0); SEGMENTED NEUTROPHILS % (AUTO) 65.6 % (42-78); TOTAL CELLS COUNTED % (AUTO) 100 %; WHITE BLOOD COUNT 12.1 10^3/uL (4.0-10.5)
--- NOTE | 2020-05-30 15:41 | RADIOLOGY REPORT (SQ) ---
EXAM DESCRIPTION: U/S OB TRANSVAGINAL W/O DOP IMAGES COMPLETED DATE/TIME: 05/30/2020 3:30 pm REASON FOR STUDY: side pain COMPARISON: 02/12/2019 TECHNIQUE: Transvaginal static and realtime grayscale images acquired of the pelvis. Additional court cted spectral and color Doppler images recorded. All images stored on PACs. CLINICAL AGE: Not available. bHCG: Not available. LIMITATIONS: None. FINDINGS: UTERUS: No masses. No anomalies. GESTATIONAL SAC: Normal shape. YOLK SAC: Not visualized. POLE: None present. RIGHT ADNEXA: Normal ovary with normal vascular flow. There are small right ovarian cysts. The largest measures 3.9 x 3.2 x 3.0 cm. There is a smaller pr obably involuting cysts with a hypervascular rim. No adnexal masses. LEFT ADNEXA: Normal ovary with normal vascular flow. No adnexal free fluid. No adnexal masses. FREE FLUID: None. OTHER: No other significant finding. IMPRESSION: POSSIBLE EARLY INTRAUTERINE . BHCG LEVEL APPROPRIATE FOR ENDOMETRIAL FINDINGS. CONSIDER F/U BHCG AND/OR ULTRASOUND FOR VERIFICATION AND TO EXCLUDE ECTOPIC . RIGHT OVARIAN CYSTS. THE LARGEST MEASURES 3.9 X 3.2 X 3.0 CM. THERE IS A SMALLER CYST WITH A HYPER VASCULAR RIM PROBABLY REPRESENTING RESOLVING CYST THIS SHOULD BE FOLLOWED UP WELL. Trimester of : First trimester - 0 to 13 weeks. TECHNICAL DOCUMENTATION: JOB ID: [id number] 2010 [employer]- All Rights Reserved Reading location - IP/workstation name: [email or web address]
[2020-05-30 15:50] LABS: ALBUMIN 3.4 g/dL (3.5-5.0); ALKALINE PHOSPHATASE 59 U/L (38-126); ANION GAP 5 (5-19); ASPARTATE AMINO TRANSFERASE 20 U/L (14-36); BILIRUBIN,DIRECT 0.1 mg/dL (0.0-0.4); BILIRUBIN,TOTAL 0.4 mg/dL (0.2-1.3); BLOOD UREA NITROGEN 14 mg/dL (7-20); CALCIUM 9.4 mg/dL (8.4-10.2); CARBON DIOXIDE 25 mmol/L (22-30); CHLORIDE 104 mmol/L (98-107); GLUCOSE 90 mg/dL (75-110); POTASSIUM 4.6 mmol/L (3.6-5.0); TOTAL PROTEIN 6.6 g/dL (6.3-8.2)
--- NOTE | 2020-05-30 18:14 | ER Document Report ---
Entered by SERGE HERNANDEZ SCRIBE 05/30/20 1749 Acting as scribe for:ARMAAN CHIU, DO ED General - General Chief Complaint: Abdominal Pain Stated Complaint: ABDOMINAL PAIN Time Seen by Provider: 05/30/20 14:32 Primary Care Provider: LIZZ NUNEZ MD [ACTIVE PROVISIONAL STAFF] - 06/01/20 Mode of Arrival: Ambulatory Information source: Patient Notes: This 19 year old female patient presents to the emergency department today with complaints of bilateral flank pain for the past x2.5 weeks. Patient states she had a outpatient ultrasound today and was sent to the ED for a possible miscarriage. Patient states she is and should be around x8 weeks since her last visit (05/05), where she was predicted to be x5.5 weeks along. Tonny perez reports history of PCOS and denies nausea, spotting, or vaginal bleeding. Patient states she has a follow up appointment with OB on Saturday. TRAVEL OUTSIDE OF THE [place] IN LAST 30 DAYS: No - Related Data Allergies/Adverse Reactions: codeine Allergy (Verified 05/05/20 12:56) Past Medical History - General Information source: Patient - Social History Smoking Status: Never Smoker Cigarette use (# per day): No Family History: Reviewed & Not Pertinent Renal/ Medical History: Reports: Hx Kidney Stones, Hx Ovarian Cysts - Immunizations Immunizations up to date: Yes Hx Diphtheria, Pertussis, Tetanus Vaccination: Yes - 2016 Review of Systems - Review of Systems Constitutional: No symptoms reported EENT: No symptoms reported Cardiovascular: No symptoms reported Respiratory: No symptoms reported Gastrointestinal: See HPI. denies: Nausea Genitourinary: See HPI, Flank pain - bilateral Female Genitourinary: See HPI, . denies: Vaginal bleeding Musculoskeletal: No symptoms reported Skin: No symptoms reported Hematologic/Lymphatic: No symptoms reported Neurological/Psychological: No symptoms reported -: Yes All other systems reviewed and negative Physical Exam - Vital signs Vitals: Temp Pulse Resp BP Pulse Ox 98.1 F 84 16 142/102 H 100 05/30/20 14:32 05/30/20 14:32 05/30/20 14:32 05/30/20 14:32 05/30/20 14:32 - General General appearance: Appears well, Alert - HEENT Head: Normocephalic, Atraumatic Eyes: Normal Pupils: PERRL - Respiratory Respiratory status: No respiratory distress Chest status: Nontender Breath sounds: Normal Chest palpation: Normal - Cardiovascular Rhythm: Regular Heart sounds: Normal auscultation Murmur: No - Abdominal Inspection: Obese Distension: No distension Bowel sounds: Normal Tenderness: Nontender - Back Back: Normal, Nontender. No: CVA tenderness - Extremities General upper extremity: Normal inspection, Normal ROM General lower extremity: Normal inspection, Normal ROM. No: Edema - Neurological Neuro grossly intact: Yes Cognition: Normal Orientation: AAOx4 [place] Coma Scale Eye Opening: Spontaneous [place] Coma Scale Verbal: Oriented [place] Coma Scale Motor: Obeys Commands [place] Coma Scale Total: 15 Speech: Normal Motor strength normal: LUE, RUE, LLE, RLE Sensory: Normal - Psychological Associated symptoms: Normal affect, Normal mood - Skin Skin Temperature: Warm Skin Moisture: Dry Skin Color: Normal Course - Vital Signs Vital signs: Temp Pulse Resp BP Pulse Ox 98.1 F 82 16 127/75 H 99 05/30/20 14:32 05/30/20 18:21 05/30/20 18:21 05/30/20 18:21 05/30/20 18:21 - Laboratory Result Diagrams: 05/30/20 15:09 05/30/20 15:09 Laboratory results interpreted by me: 05/30/20 05/30/20 05/30/20 15:09 15:09 15:09 WBC 12.1 H Hct 35.8 L Sodium 133.8 L Albumin 3.4 L Beta HCG, Quant 45258.00 H Urine Protein >=500 H Urine Blood LARGE H Discharge - Discharge Clinical Impression: Early stage of , Threatened Condition: Stable Disposition: HOME, SELF-CARE Instructions: Abdominal Pain ([facility]), Acetaminophen, Ob-Sheet Metal Worker Maintenance Doctors, ([facility]), Threatened Miscarriage ([facility]) Additional Instructions: Keep your follow up with Ob for follow up Saturday. Please return here for vaginal bleeding, fever, dizziness, other problems or concerns. Zofran has been sent to [facility]. Prescriptions: Ondansetron [Zofran Odt 4 mg Tablet] 1 - 2 tab PO Q4H PRN #15 tab.rapdis PRN Reason: For Nausea/Vomiting Forms: Elevated Blood Pressure Referrals: LIZZ NUNEZ MD [ACTIVE PROVISIONAL STAFF] - 06/01/20 I personally performed the services described in the documentation, reviewed and edited the documentation which was dictated to the scribe in my presence, and it accurately records my words and actions.
[2020-05-30 18:21] VITALS: BP 127/75
== END 2020-05-30 18:20 | disposition home or self-care (01) ==
LOC: ER 14:28
DX: O20.0 Threatened abortion (principal); O26.899 Other specified pregnancy related conditions, unspecified trimester; R10.9 Unspecified abdominal pain; Z3A.00 Weeks of gestation of pregnancy not specified; Z87.442 Personal history of urinary calculi
CPT/HCPCS: 36415; 76817; 80053; 81001; 84702; 85025; 99284